=== PATIENT | female | born 1985 | race Two or more races ===

== ENCOUNTER 2017-01-31 05:50 | Emergency (ER) | payer MEDICAID ==
[2017-01-31] MEDS ORDERED: Alum Hydroxide/Mag Hydroxide 15 ML, Lidocaine 2% 15 ML PO ONE ×2 (06:03)
--- NOTE | 2017-01-31 06:22 | EDM.PDOC ---
ED HPI GENERAL MEDICAL PROBLEM - General Chief Complaint: Abdominal Pain Stated Complaint: ABD PAIN Time Seen by Provider: 01/31/17 06:05 Source of Information: Reports: Patient History Limitations: Reports: No Limitations - History of Present Illness INITIAL COMMENTS - FREE TEXT/NARRATIVE: c/o epigastric pain pt ate 1 slice of pizza at 10 PM for supper, nothing to drink, no alcohol, felt fine then awoke at 5 AM with epigastric pain, no radiation, took no meds, no f/c/d, no n/v last BM 1d ago no previous GI pain, s/p choly not working saw Niurka at [facility] 2w ago, blood and urine done, had "kidney pain", given Tyl #3, not given antbx, last UTI was several yrs ago with last Epigastric Pain Score (Numeric/FACES): 10 - Related Data Allergies Allergy/AdvReac Type Severity Reaction Status Date / Time No Known Allergies Allergy Verified 01/31/17 06:01 Home Meds: Home Meds Acetaminophen with Codeine [Tylenol with Codeine #3 Tablet] 1 each PO Q4HR PRN 01/31/17 [History] Omeprazole 20 mg PO DAILY #14 cap.cr 01/31/17 [Rx] Sulfamethoxazole/Trimethoprim [Bactrim 400-80 MG] 1 each PO BID #6 tablet [Rx] Social & Family History - Tobacco Use Smoking Status *Q: Never Smoker - Caffeine Use Caffeine Use: Reports: Soda - Alcohol Use Days Per Week of Alcohol Use: 0 - Recreational Drug Use Recreational Drug Use: No ED ROS GENERAL - Review of Systems Review Of Systems: See Below Constitutional: Reports: No Symptoms HEENT: Reports: No Symptoms Respiratory: Reports: No Symptoms Cardiovascular: Reports: No Symptoms Endocrine: Reports: No Symptoms GI/Abdominal: Reports: Abdominal Pain : Reports: No Symptoms Musculoskeletal: Reports: No Symptoms Skin: Reports: No Symptoms Neurological: Reports: No Symptoms Psychiatric: Reports: No Symptoms Hematologic/Lymphatic: Reports: No Symptoms Immunologic: Reports: No Symptoms ED EXAM, GI/ABD - Physical Exam Exam: See Below Exam Limited By: No Limitations General Appearance: Alert, WD/WN, No Apparent Distress Neck: Normal Inspection Respiratory/Chest: No Respiratory Distress Cardiovascular: Regular Rate, Rhythm GI/Abdominal Exam: Normal Bowel Sounds, Soft, No Distention, Other (soft, nl BS x 4, 1+ tender at epigastrium only, NT elsewhere, no CVAT, ND, no guard, no rebound) Extremities: Normal Inspection, Normal Range of Motion, Non-Tender, No Pedal Edema Neurological: Alert, Oriented, CN II-XII Intact, Normal Cognition, No Motor/ Sensory Deficits Psychiatric: Normal Affect, Normal Mood Skin Exam: Warm, Dry, Intact, Normal Color, No Rash Lymphatic: No Adenopathy Course - Vital Signs Last Recorded V/S: Last Vital Signs Temp 36.8 C 01/31/17 06:09 Pulse 90 01/31/17 07:59 Resp 16 01/31/17 07:59 BP 127/85 01/31/17 07:59 Pulse Ox 97 01/31/17 07:59 - Orders/Labs/Meds Orders: Active Orders 24 hr Category Date Time Status CULTURE URINE [RM] Stat Lab 01/31/17 08:20 Uncollected Labs: Laboratory Tests 01/31/17 Range/Units 07:25 Urine Color Yellow (YELLOW) Urine Appearance Cloudy (CLEAR) Urine pH 5.0 (5.0-6.5) Ur Specific [place] 1.020 (1.010-1.025) Urine Protein Trace (NEGATIVE) mg/dL Urine Glucose (UA) Normal (NEGATIVE) mg/dL Urine Ketones Negative (NEGATIVE) mg/dL Urine Occult Blood Large H (NEGATIVE) Urine Nitrite Negative (NEGATIVE) Urine Bilirubin Negative (NEGATIVE) Urine Urobilinogen 1 H (NEGATIVE) mg/dL Ur Leukocyte Esterase Negative (NEGATIVE) Urine RBC 75-100 H (0) Urine WBC 5-10 (0) Ur Squamous Epith Cells Few H (NS,R,O) Urine Bacteria Many H (NS) Meds: Medications Discontinued Medications Generic Name Dose Route Start Last Admin Trade Name Freq PRN Reason Stop Dose Admin Al Hydroxide/Mg Hydroxide 15 0 ml 01/31/17 06:03 01/31/17 06:12 ml/ Lidocaine HCl 15 ml PO 01/31/17 06:04 15 ml ONETIME ONE Administration Al Hydroxide/Mg Hydroxide 30 0 ml 01/31/17 06:58 01/31/17 07:18 ml/ Lidocaine HCl 15 ml PO 01/31/17 06:59 45 ml ONETIME ONE Administration Ketorolac Tromethamine 60 mg 01/31/17 06:58 01/31/17 07:14 Toradol IM 01/31/17 06:59 60 mg ONETIME ONE Administration - Re-Assessments/Exams Free Text/Narrative Re-Assessment/Exam: 01/31/17 08:21 pt says she "is feeling a little bit better" after GI cocktail x 2 and Toradol 60 mg IM, u/a shows signs of infection with 75-100 rbc, 5-10 wbc, few epi's, many bacteria. Last UC 09-04-14 showed E coli sensitive to all except moxifloxacin. Pt states she is allergic to moxifloxacin. Abd is essentially NT on repeat exam with perhaps slight discomfort in epigastrium only to deep palpation, soft, good BS x 4. Departure - Departure Time of Disposition: 08:23 Disposition: Home, Self-Care 01 Condition: Good Clinical Impression: GERD (gastroesophageal reflux disease), UTI (urinary tract infection) - Discharge Information Prescriptions: Omeprazole 20 mg PO DAILY #14 cap.cr Sulfamethoxazole/Trimethoprim [Bactrim 400-80 MG] 1 each PO BID #6 tablet Forms: ED Department Discharge Additional Instructions: For bladder infection, take TMP/SMX DS 1 tab 2 times a day for 3 days. Take 2 doses today. For acid reflux, take omeprazole 20 mg 1 tab daily for 2 weeks. For acid reflux, take liquid antacid 2 tablespoons 2 hours after meals and at bedtime. For pain, take acetaminophen 325 mg 2 tabs 4 times a day. For pain and to help absorb the excess acid in the stomach, eat 3 meals a day, including when you get home. Avoid fatty food for the next several days. Use moist heat in tub or shower for 10 minutes 3-4 times a day. A urine culture is pending. See your doctor tomorrow. If you are feeling worse today, return to ED. - My Orders Last 24 Hours: My Active Orders 01/31/17 08:20 CULTURE URINE [RM] Stat - Assessment/Plan Last 24 Hours: My Active Orders 01/31/17 08:20 CULTURE URINE [RM] Stat
[2017-01-31] MEDS ORDERED: Alum Hydroxide/Mag Hydroxide 30 ML, Lidocaine 2% 15 ML PO ONE ×2 (06:58)
[2017-01-31] MEDS ORDERED: Ketorolac 60 MG/2 ML SDV IM ONE (06:58)
[2017-01-31 08:48] VITALS: BP 118/81
--- NOTE | 2017-02-04 02:44 | ER ---
DATE SEEN: 01/31/2017 The patient has urine culture obtained via Dr. Slaughter on 01/29/2017. The results came back resistant to the medications she was given TMP/SMX. The patient's medicine was changed to Keflex 5 mg t.i.d., 30 tablets. I did attempt to call her at [phone]. The individual's answering phone stated she does not live at that residence. It is apparent she has given the wrong address or has not updated her telephone and address. Consequently, I have sent a letter to her with a prescription for her to fill Keflex 500 mg, 21 tablets one t.i.d. DIAGNOSES: 1. Urinary tract infection. 2. Resistance to TMP/SMX. 3. The patient unavailable for personal communications. Letter sent to the patient to bridge this data gap. Prescription given for Keflex 500 mg 21 tablets one t.i.d. /[id number] JENNIFER/CODY
== END 2017-01-31 08:45 | disposition home or self-care (01) ==
LOC: FB.ED 05:50
DX: K21.9 Gastro-esophageal reflux disease without esophagitis (principal); N39.0 Urinary tract infection, site not specified
CPT/HCPCS: 81001; 87086; 87088; 87186; 96372; 99284; A9270; J1885

== ENCOUNTER 2017-10-31 08:52 | Emergency (ER) | payer MEDICAID ==
[2017-10-31 17:46] VITALS: BP 120/90
--- NOTE | 2017-11-01 16:26 | ER ---
DATE SEEN: 10/31/2017 TIME SEEN: The patient was seen at 1035 hours. HISTORY OF PRESENT ILLNESS: The patient has had 1 month duration of intermittent right upper quadrant pain. Has had cough. Had a bronchitis, treated with antibiotic - Z-[id number]. She had Tylenol No. 3 for the last 2 days to take care of the pain. The discomfort is worse. She has difficulty. States she cannot walk. The patient is not . She notes it has been painful to take a deep breath. No shortness of breath. See chart for vital signs. PAST MEDICAL HISTORY: Patient takes Symbicort p.r.n. for breathing and asthma. Otherwise has GERD. Previous history urinary tract infection. REVIEW OF SYSTEMS: Negative. PHYSICAL EXAMINATION: HEENT: Without abnormality. Pharynx without abnormality. No erythema. No cervical adenopathy. No tracheal enlargement, tracheal tug, or thyroid enlargement. LUNGS: Clear without rales, rhonchi, or wheezes. HEART: S1, S2. No murmur. ABDOMEN: Soft with mild discomfort in the right upper quadrant, but most discomfort is isolated to the 7th, 8th, and 9th ribs at the anterior axillary line. Does not involve the costochondral joints or sternochondral joints. ASSESSMENT: The patient is reassured. She has intercostal myalgia. Use ibuprofen and Tylenol for pain. Follow up with doctor as needed. Use heat as needed. Reassured. /[id number] JENNIFER/TAWANDAL
== END 2017-10-31 11:35 | disposition home or self-care (01) ==
LOC: FB.ED 08:52
DX: R07.82 Intercostal pain (principal); M79.1 Myalgia; R10.11 Right upper quadrant pain
CPT/HCPCS: 81001; 99284

== ENCOUNTER 2025-05-26 18:49 | Emergency (ER) | payer BC, MEDICAID ==
[2025-05-26 20:24] LABS: BASOPHILS ABSOLUTE AUTO 0.1 x10-3/uL (0.0-0.1); BASOPHILS PERCENT AUTO 0.8 % (0.2-1.5); EOSINOPHILS ABSOLUTE AUTO 0.2 x10-3/uL (0.0-0.8); EOSINOPHILS PERCENT AUTO 1.9 % (0.6-8.1); LYMPHOCYTES ABSOLUTE AUTO 2.7 x10-3/uL (1.0-4.4); LYMPHOCYTES PERCENT AUTO 25.7 % (18.4-52.1); MEAN PLATELET VOLUME 6.5 fL (7.1-12.4); MONOCYTES ABSOLUTE AUTO 0.8 x10-3/uL (0.3-1.0); MONOCYTES PERCENT AUTO 7.6 % (4.4-15.7); NEUTROPHILS ABSOLUTE AUTO 6.7 x10-3/uL (1.5-6.3); NEUTROPHILS PERCENT AUTO 64.0 % (30.8-76.2); PLATELET COUNT,PLT 564 x10(3)uL (151-488); RED BLOOD CELL COUNT 3.66 x10(6)uL (3.60-5.20); RED CELL DISTRIBUTION WIDTH 14.7 % (12.3-16.5); WHITE BLOOD CELL COUNT,WBC 10.5 x10-3/uL (3.0-10.3)
[2025-05-26 20:30] LABS: BLOOD UREA NITROGEN,BUN 11 mg/dL (7-18); CARBON DIOXIDE,CO2 30 mmol/L (21-32); CHLORIDE,CL 102 mmol/L (100-110); CREATININE 0.7 mg/dL (0.55-1.02); EST CRCL DRUG DOSING (CG) 83.03 mL/min; ESTIMATED GFR 114 mL/min (>60); GLUCOSE RANDOM 106 mg/dL (80-116); POTASSIUM,K 3.4 mmol/L (3.5-5.3); SODIUM,NA 141 mmol/L (135-145)
[2025-05-26 20:36] LABS: A/G RATIO 0.8; ALANINE AMINOTRANSFERASE,ALT 19 U/L (12-36); ASPARTATE AMNIOTRANSFERASE,AST 12 IU/L (5-25); BILIRUBIN TOTAL 0.2 mg/dL (0.1-1.3); PROTEIN TOTAL,TP 8.3 g/dL (6.0-8.0)
[2025-05-26 20:46] LABS: TSH ULTRASENSITIVE 1.4 IU/mL (0.36-3.74)
[2025-05-26] MEDS: Iopamidol 755 Mg/ML 100 ML Bottle IV SCH (21:42)
[2025-05-26 22:10] VITALS: BP 174/108; PULSE 86
== END 2025-05-26 22:22 | disposition home or self-care (01) ==
LOC: FB.ED 18:49
DX: R07.89 Other chest pain (principal); I10 Essential (primary) hypertension; D64.9 Anemia, unspecified
CPT/HCPCS: 36415; 71275; 80053; 84443; 84484; 85025; 85379; 93005; 99284; A9270-GY; Q9967